=== PATIENT | male | born 1985 | race Caucasian/White ===

== ENCOUNTER 2018-07-26 22:54 | Emergency (ER) | payer SELFPAY ==
--- NOTE | 2018-07-26 23:08 | ER Document Report ---
ED General - General Stated Complaint: NAUSUA/VOMITING Time Seen by Provider: 07/26/18 23:00 Notes: Patient is a 33-year-old male who presents with complaint of having abdominal cramping and vomiting. No diarrhea. No fevers. Symptoms started around 7 PM today. He does use heroin on a daily basis. He says last heroin use was around noon. He does not feel as if he is in withdrawal. He usually only uses heroin once a day per his history and says usually does not get the symptoms between usages. He denies any other drug use. He does smoke. No alcohol use. No headache. No chest pain. No shortness of breath. He received a liter of normal saline as well as for Zofran in the ambulance. Patient's friend is at bedside. He says that they been working outside a lot with her job. They have been out the heat a lot. Patient says he has been drinking some Gatorade throughout the day. Patient's friend said he was doing fine until they want to drive home and that is when he started getting sweaty and started vomiting that was around 7:30 8:00 PM. - Related Data Allergies/Adverse Reactions: promethazine HCl [From Phenergan] Allergy (Verified 07/27/18 01:15) Past Medical History - Social History Smoking Status: Current Every Day Smoker Frequency of alcohol use: None Drug Abuse: Heroin Family History: Reviewed & Not Pertinent - Immunizations Hx Diphtheria, Pertussis, Tetanus Vaccination: Yes Review of Systems - Review of Systems Notes: My Normal Review Basic REVIEW OF SYSTEMS: CONSTITUTIONAL : Denies fever, chills, or sweats. Denies recent illness. CARDIOVASCULAR: Denies chest pain. RESPIRATORY: Denies cough, cold, or chest congestion. Denies shortness of breath, difficulty breathing, or wheezing. GASTROINTESTINAL: abdominal cramping. Vomiting. GENITOURINARY: Denies difficulty urinating, painful urination, burning, frequency, or blood in urine. MUSCULOSKELETAL: Denies neck or back pain or joint pain or swelling. SKIN: Denies rash or skin lesions. NEUROLOGICAL: Denies altered mental status or loss of consciousness. Denies headache. Denies weakness or paralysis or loss of use of either side. Denies problems with gait or speech. Denies sensory or motor loss. ALL OTHER SYSTEMS REVIEWED AND NEGATIVE. Physical Exam - Vital signs Vitals: Resp BP Pulse Ox 10 L 144/95 H 96 07/26/18 22:59 07/26/18 22:59 07/26/18 22:59 - Notes Notes: General Appearance: Weak appearing. Alert. Will answer questions but does not seem 100% forthcoming with all his answers. Vitals: reviewed, See vital signs table. Head: no swelling or tenderness to the head Eyes: PERRL, EOMI, Conjuctiva clear Mouth: No decreasd moisture Throat: No tonsillar inflammation, No airway obstruction, No lymphadenopathy Neck: Supple, no neck tenderness, No thyromegaly Lungs: No wheezing, No rales, No rhonci, No accessory muscle use, good air exchange bilaterally. Heart: Normal rate, Regular rythm, No murmur, no rub Abdomen: Normal BS, soft, No rigidity, No abdominal tenderness, No guarding, no rebound, Extremities: strength 5/5 in all extremities, good pulses in all extremities, no swelling or tenderness in the extremities, no edema. Skin: warm, dry, appropriate color, no rash Neuro: speech clear, oriented x 3, normal affect, responds appropriately to questions. Cranial nerves II through XII are intact. Distal sensation intact. Patient moves all extremities without difficulty. Course - Re-evaluation Re-evalutation: 07/27/18 00:30 Patient is feeling much improved. He looks well. He is resting comfortably. We will have them recheck his temp to see if we can remove the bear hugger. I am awaiting CPK to see if it is elevated. His abdomen remains nontender to palpation. Liver enzymes are just slightly elevated however the patient has no pain palpation of the abdomen therefore I do not think he needs an ultrasound of the gallbladder at this time. 07/27/18 02:11 Patient is up and walking around. He looks and feels great. He says he has no symptoms and feels very well. He he now tells me that his symptoms actually started while he was working outside. He decided to leave his friend's house and drive home and his friend called him to come back. He started vomiting and felt diaphoretic. I suspect this could be heat exhaustion. He does have a slight leukocytosis but no fever and clinically looks very well with normal vital signs. I do not suspect endocarditis or infection from IV drug abuse. He does not have any form of splinter hemorrhages, Janeway lesions, and has no murmur. I talked to patient length about IV drug abuse informed him that he needs to stay away from any IV drugs as the likely rate will eventually result in . I said this with the patient's skin other in the room. She agrees. Patient agrees and says he will try to avoid heroin use. Patient informed to return to ER immediately if he has recurrence of his symptoms or feels unwell in any way. Dictation of this chart was performed using voice recognition software; therefore, there may be some unintended grammatical errors. 07/27/18 02:12 - Vital Signs Vital signs: Temp Pulse Resp BP Pulse Ox 98.0 F 15 122/97 H 99 07/27/18 00:08 07/27/18 01:00 07/27/18 01:00 07/27/18 01:00 - Laboratory Result Diagrams: 07/26/18 23:10 07/26/18 23:10 Laboratory results interpreted by me: 07/26/18 07/26/18 23:10 23:10 WBC 15.8 H Seg Neutrophils % 79.7 H Lymphocytes % 12.5 L Absolute Neutrophils 12.6 H Sodium 146.3 H Glucose 117 H Calcium 10.6 H AST 64 H ALT 167 H Total Protein 10.0 H Albumin 5.2 H Salicylates < 1.0 L Acetaminophen < 10 L - EKG Interpretation by Me Additional EKG results interpreted by me: 07/26/18 23:14 EKG is reviewed and interpreted by me. EKG shows sinus rhythm with rate of [address] segment elevation or depression. No ischemic T-wave inversions. MI interval, QRS duration are within normal range. QT interval is prolonged. Discharge - Discharge Clinical Impression: Diaphoresis, Heroin use Vomiting Qualifiers: Vomiting type: unspecified Vomiting Intractability: non-intractable Nausea presence: with nausea Qualified Code(s): R11.2 - Nausea with vomiting, unspecified Condition: Good Disposition: HOME, SELF-CARE Additional Instructions: Please return to the ER imemidately if you develop recurrent vomiting, fevers, recurrent pain, or if you feel unwell in any way. please do not use Heroin or any IV drugs as they can lead to . Please avoid the heat for the next 24 hours. Prescriptions: Ondansetron [Zofran Odt 4 mg Tablet] 1 tab PO Q4H PRN #10 tab.rapdis PRN Reason: For Nausea/Vomiting Referrals: AYDE ELLSWORTH MD [NO LOCAL MD] - 07/29/18
[2018-07-26] MEDS ORDERED: RINGERS SOLUTION,LACTATED 1,000 ML IV ONE (23:09)
[2018-07-26 23:24] LABS: ABSOLUTE BASOPHILS # (AUTO) 0.1 10^3/uL (0.0-0.2); ABSOLUTE EOSINOPHILS # (AUTO) 0.3 10^3/uL (0.0-0.6); ABSOLUTE MONOCYTES (AUTO) 0.9 10^3/uL (0.1-1.4); ABSOLUTE NEUT (AUTO) 12.6 10^3/uL (1.7-8.2); BASOPHILS % (AUTO) 0.6 % (0-2); EOSINOPHILS % (AUTO) 1.6 % (0-6); HEMATOCRIT 47.7 % (37.9-51.0); HEMOGLOBIN 16.2 g/dL (13.5-17.0); LYMPHOCYTES % (AUTO) 12.5 % (13-45); MEAN CORPUSCULAR VOLUME 91 fl (80-97); MONOCYTES % (AUTO) 5.6 % (3-13); PLATELET COUNT 270 10^3/uL (150-450); RED BLOOD COUNT 5.23 10^6/uL (4.35-5.55); RED CELL DISTRIBUTION WIDTH 13.9 % (11.5-14.0); SEGMENTED NEUTROPHILS % (AUTO) 79.7 % (42-78); TOTAL CELLS COUNTED % (AUTO) 100 %; WHITE BLOOD COUNT 15.8 10^3/uL (4.0-10.5)
[2018-07-26 23:43] LABS: ALANINE AMINOTRANSFERASE 167 U/L (21-72); ALBUMIN 5.2 g/dL (3.5-5.0); ALKALINE PHOSPHATASE 122 U/L (38-126); ANION GAP 14 (5-19); ASPARTATE AMINO TRANSFERASE 64 U/L (17-59); BILIRUBIN,DIRECT 0.4 mg/dL (0.0-0.4); BILIRUBIN,TOTAL 0.8 mg/dL (0.2-1.3); BLOOD UREA NITROGEN 18 mg/dL (7-20); CALCIUM 10.6 mg/dL (8.4-10.2); CARBON DIOXIDE 25 mmol/L (22-30); CHLORIDE 107 mmol/L (98-107); GLUCOSE 117 mg/dL (75-110); LIPASE 149.5 U/L (23-300); POTASSIUM 4.6 mmol/L (3.6-5.0); SODIUM 146.3 mmol/L (137-145)
[2018-07-26 23:47] LABS: ACETAMINOPHEN < 10 ug/mL (10-30); SALICYLATE < 1.0 mg/dL (2.0-20.0)
[2018-07-27 01:15] VITALS: BP 122/97
[2018-07-27 02:28] LABS: URINE BARBITURATES SCREEN NEGATIVE; URINE BENZODIAZEPINES SCREEN NEGATIVE; URINE COCAINE SCREEN NEGATIVE; URINE MARIJUANA (THC) SCREEN NEGATIVE; URINE METHADONE SCREEN NEGATIVE; URINE PHENCYCLIDINE SCREEN NEGATIVE
--- NOTE | 2018-07-27 05:23 | RADIOLOGY REPORT (SQ) ---
PROCEDURE: Chest x-ray two views CLINICAL HISTORY: weakness INDICATION: Same as above COMPARISON: None TECHNIQUE: The study was done on 07/27/2018 at 1:18 AM local time [place] and and lateral chest radiographs were obtained. FINDINGS: The lung albarado are well inflated. There are no discrete airspace infiltrates, pneumothoraces or pleural effusions. The pulmonary vascularity is normal The cardiomediastinal silhouette is unremarkable for patient's age and sex. IMPRESSION: There is no acute pleural-parenchymal process seen in the imaged lung albarado. Place of interpretation: [facility].
--- NOTE | 2018-07-27 08:10 | EKG REPORT ---
SEVERITY:- ABNORMAL ECG - SINUS RHYTHM PROLONGED QT INTERVAL : Confirmed by: Subhash Horan MD 27-Jul-2018 08:09:16
== END 2018-07-27 02:55 | disposition home or self-care (01) ==
LOC: ER 22:54
DX: R11.2 Nausea with vomiting, unspecified (principal); R10.9 Unspecified abdominal pain; F11.10 Opioid abuse, uncomplicated; R61 Generalized hyperhidrosis; R74.8 Abnormal levels of other serum enzymes; F17.200 Nicotine dependence, unspecified, uncomplicated; Z88.8 Allergy status to other drugs, medicaments and biological substances
CPT/HCPCS: 93005; 99284; 96360; 36415; 82550; 83690; 80307 ×3; 85025; 80053; 84484; 71046; 93010; J7120

== ENCOUNTER 2018-08-25 00:10 | Emergency (ER) | payer OTHER ==
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
[2018-08-25] MEDS ORDERED: ACETAMINOPHEN 325 MG TABLET PO ONE (02:53)
--- NOTE | 2018-08-25 03:51 | RADIOLOGY REPORT (SQ) ---
EXAM DESCRIPTION: CT HEAD WITHOUT IV CONTRAST COMPLETED DATE/TME: 08/25/2018 02:53 CLINICAL HISTORY: headache, closed head injury COMPARISON: None available TECHNIQUE: Axial CT of the head obtained from the skull apex to the skull base without contrast. FINDINGS: No acute intracranial hemorrhage identified. No mass, mass effect, shift of the midline, abnormal extra-axial fluid collection or CT evidence of acute ischemic change identified. The ventricular system is unremarkable. No acute abnormalities of the supratentorial white matter, basal ganglia, cerebellum, or brainstem. Mucosal thickening of the paranasal sinuses. Mastoid air cells are well aerated. No skull fracture identified. Visualized orbits and globes are unremarkable. DLP: 1150 mGy-cm IMPRESSION: 1. No acute intracranial abnormality identified. This exam was performed according to our departmental dose-optimization program, which includes automated exposure control, adjustment of the mA and/or kV according to patient size and/or use of iterative reconstruction technique.
[2018-08-25 04:28] VITALS: BP 114/80
== END 2018-08-25 04:27 | disposition home or self-care (01) ==
LOC: ER 00:10
DX: S09.90XA Unspecified injury of head, initial encounter (principal); V87.7XXA Person injured in collision between other specified motor vehicles (traffic), initial encounter; F17.210 Nicotine dependence, cigarettes, uncomplicated
CPT/HCPCS: 70450; 99284